=== PATIENT | male | born 1945 | race Asian ===

== ENCOUNTER 2017-06-21 09:45 | Inpatient (IN) | payer MEDICARE, OTHER ==
[2017-06-21] VITALS (35 sets, daily range): BP systolic 108–139; BP diastolic 56–73; PULSE 55–72; RESP 16–18; Ht 180.3 cm; Wt 73.8 kg
[~2017-06-21] VITALS: Ht 180.3 cm; Wt 73.8 kg
[~2017-06-21 09:45] MED LIST: AMLO-147 PO; BENA10TA48 PO; SIMV20TA2 PO
[2017-06-21] MEDS ORDERED: ASPI-664 PO (11:15)
[2017-06-21] MEDS ORDERED: BENA40TA41 PO (11:16)
[2017-06-21 11:43] LABS: ALBUMIN 4.7 g/dl (3.3-4.9); ALBUMIN/GLOBULIN RATIO 1.38; BILIRUBIN,INDIRECT 0.7 mg/dl (0-1.1); BILIRUBIN,TOTAL 0.7 mg/dl (0.2-1.3); TOTAL PROTEIN 8.1 g/dl (6.1-8.1)
[2017-06-21 11:45] LABS: CALCIUM 8.9 mg/dl (8.4-10.2); CREATININE 0.97 mg/dl (0.61-1.24)
--- NOTE | 2017-06-21 12:25 | HPN ---
Date/Time of Note Date/Time of Note DATE: 06/21/17 TIME: 12:25 Interval H&P Admission Note Pt. seen H&P reviewed: No system changes MARITZA OSORIO MD Jun 21, 2017 12:25
[2017-06-21] MEDS ORDERED: morphine SULFATE/PF (10 MG/10 ML) INJ ONE (12:26)
[2017-06-21] MEDS ORDERED: MEPERIDINE 25 MG INJ IV PRN (13:00)
[2017-06-21] MEDS ORDERED: ONDANSETRON 4 MG INJ IV PRN (13:00)
[2017-06-21] MEDS ORDERED: METOCLOPRAMIDE 10 MG INJ IV PRN (13:00)
[2017-06-21] MEDS ORDERED: FENTAnyl 50 MCG/ML VIAL IV PRN ×2 (13:00)
[2017-06-21] MEDS ORDERED: ALBUTEROL 0.083% (NEB) 2.5 MG/3 ML AMP HHN PRN (13:00)
[2017-06-21] MEDS ORDERED: HYDROmorphONE (0.2 MG/ML) 10ML SYG IV PRN ×2 (13:00)
[2017-06-21] MEDS ORDERED: DIPHENHYDRAMINE 50 MG INJ IV PRN (13:00)
[2017-06-21] MEDS ORDERED: SUCCINYLCHOLINE CHLORIDE 100 MG/5 ML SYG IV ONE (13:43)
[2017-06-21] MEDS ORDERED: LIDOCAINE 2% (SDV) 5 ML INJ ONE (13:43)
[2017-06-21] MEDS ORDERED: CEFAZOLIN 1 GM INJ ONE (13:43)
[2017-06-21] MEDS ORDERED: PROPOFOL 20 ML ONE (13:43)
[2017-06-21] MEDS ORDERED: ROCURONIUM 50 MG INJ ONE (13:43)
[2017-06-21] MEDS ORDERED: SUGAMMADEX SODIUM 200 MG/2 ML VIAL IV ONE (14:03)
--- NOTE | 2017-06-21 14:19 | OPR ---
Date/Time of Note Date/Time of Note DATE: 06/21/17 TIME: 14:11 Operative Report Procedure Date: Jun 21, 2017 Preoperative Diagnosis Benign prostatic hypertrophy with lower urinary tract symptoms and hematuria Postoperative Diagnosis Benign prostatic hypertrophy with lower urinary tract symptoms, patient also has a small bladder tumor Surgeon see signature line Vrt Mechanic None Anesthesia Type: general, spinal Anesthesiologist: MARKO OCASIO Estimated Blood Loss: 50 - 100 ml's Transfusion none Specimen 1-small bladder tumor 2-prostatic tissue Grafts/Implants none Tubes/Drains 24 [place] three-way Martinez catheter Complications none Pt Condition Post Procedure: stable Disposition: PACU Indications Benign prostatic hypertrophy with lower urinary tract symptoms and hematuria Procedure Description The patient was brought to the operating room, spinal anesthesia was given first then general anesthesia. The patient was positioned in the lithotomy position. Timeout was done. The patient was identified by his name birthdate and the procedure. The genital area was then prepped and draped in the usual sterile manner. #22 [place] cystoscope sheath was introduced under direct vision through the penile urethra all the way to the bladder. Patient did have a large median lobe mostly toward the right side. And there was some adhesions between the prostatic tissue and the urethra around the verumontanum. He also had a small bladder tumor on the left side of his bladder wall. The scope was then removed and the bipolar resectoscope was introduced. First I resected the bladder tumor and send the specimen separate. Then I resected the prostate and the medial lobe first then the lateral lobes and finally the anterior lobe. The apical tissue was also resected. Good hemostasis was obtained. The ureteral orifices were intact and away from the resection. The external sphincter is also intact. The resectoscope was then removed a #24 [place] three-way Martinez catheter was inserted. The balloon was inflated was 45 mL of sterile water. Continuous bladder irrigation was started in the operating room and the Martinez catheter connected to a drainage bag. The patient tolerated the procedure well and was transferred to the recovery room in a stable and satisfactory condition MARITZA OSORIO MD Jun 21, 2017 14:19
--- NOTE | 2017-06-21 15:06 | CONS ---
Date/Time of Note Date/Time of Note DATE: 06/21/17 TIME: 15:02 Assessment/Plan Assessment/Plan Chief Complaint/Hosp Course 1. BPH status post TURP postop day 0 Pain control 2. Bladder mass status post resection Follow-up on pathology 3. Hypertension Resume home meds as able Problems: Consultation Date/Type/Reason Admit Date/Time Jun 21, 2017 at 10:23 Hx of Present Illness Patient is a 71-year-old male with a history of hypertension and BPH status post TURP in 2009. Patient presented today for a repeat TURP, patient has no complaints at this time, he denies any chest pain shortness of breath. Constitutional: improved, no complaints Eyes: no complaints ENT: no complaints Respiratory: no complaints Cardiovascular: no complaints Gastrointestinal: no complaints Genitourinary: no complaints Musculoskeletal: no complaints Skin: no complaints Neurologic: no complaints Endocrine: no complaints Lymphatic: no complaints Psychological: nl mood/affect, no complaints Immunologic: no complaints Past Medical History Hypertension and BPH status post TURP in 2009 as well as today Family History Significant Family History: no pertinent family hx Social History Alcohol Use: rarely Smoking Status: Never smoker Drug Use: none Exam/Review of Systems Vital Signs Vitals Vital Signs Date Time Temp Pulse Resp B/P Pulse Ox O2 Delivery O2 Flow Rate FiO2 06/21/17 14:23 97.3 06/21/17 14:09 55 17 119/63 99 Nasal Cannula 2.0 Exam Constitutional: alert, oriented Head: normocephalic Respiratory: clear to auscultation Cardiovascular: regular rate and rhythm Gastrointestinal: soft, No distended Musculoskeletal: nl extremities to inspection Results Result Diagram: 06/21/17 1115 Results 24 hrs Laboratory Tests Test 06/21/17 11:15 Sodium Level 142 Potassium Level 4.0 Chloride Level 106 Carbon Dioxide Level 27 Anion Gap 13 Blood Urea Nitrogen 12 Creatinine 0.97 Glucose Level 111 Calcium Level 8.9 Total Bilirubin 0.7 Direct Bilirubin 0.00 Indirect Bilirubin 0.7 Aspartate Amino Transf (AST/SGOT) 26 Alanine Aminotransferase (ALT/SGPT) 33 Alkaline Phosphatase 56 Total Protein 8.1 Albumin 4.7 Globulin 3.40 H Albumin/Globulin Ratio 1.38 Medications Medications Current Medications Dextrose/Sodium Chloride (D5-1/2ns) 1,000 ml @ 50 mls/hr Q20H IV ; Start 06/21 at 14:07 OMID AYALA Jun 21, 2017 15:06
[2017-06-21] MEDS: DEXTROSE 5%-0.45% NACL 1,000 ML IV SCH (17:22)
[2017-06-21] MEDS ORDERED: NON-FORMULARY/PATIENT OWN MED (Simvastatin 20 MG) PO SCH (21:00)
[2017-06-21] MEDS ORDERED: ATORVASTATIN 10 MG TAB PO SCH (21:00)
[2017-06-22 02:00] VITALS: BP 120/63; RESP 18
[2017-06-22 05:58] LABS: BASOPHILS % 0.5 % (0.0-2.0); EOSINOPHILS # 0.2 10^3/ul (0.0-0.5); EOSINOPHILS % 2.7 % (0.0-7.0); HEMATOCRIT 38.8 % (42.0-52.0); HEMOGLOBIN 13.5 g/dl (14.0-18.0); LYMPHOCYTES # 0.9 10^3/ul (0.8-2.9); LYMPHOCYTES % 11.7 % (15.0-51.0); MEAN CORPUSCULAR HEMOGLOBIN 32.4 pg (29.0-33.0); MEAN CORPUSCULAR HGB CONC 34.8 g/dl (32.0-37.0); MONOCYTE # 0.7 10^3/ul (0.3-0.9); MONOCYTES % 8.7 % (0.0-11.0); NEUTROPHIL # 5.7 10^3/ul (1.6-7.5); NEUTROPHILS % 76.1 % (39.0-77.0); PLATELET COUNT 169 10^3/UL (140-415); RED BLOOD COUNT 4.17 10^6/ul (4.70-6.10); WHITE BLOOD COUNT 7.5 10^3/ul (4.8-10.8)
[2017-06-22 06:31] LABS: PHOSPHORUS 4.2 mg/dl (2.5-4.9)
[2017-06-22 07:40] VITALS: BP 109/58; RESP 20
--- NOTE | 2017-06-22 07:56 | PDOCDIS ---
Discharge Instructions CONDITION Patient Condition: Good HOME CARE INSTRUCTIONS: Diet Instructions: Regular ACTIVITY: Activity Restrictions: Slowly Increase Activity Rest between Activity Avoid heavy lifting No Sexual Activity Do not Drive Bathing Restrictions: May shower, let the water rinse over and dry the catheter and the back after shower FOLLOW UP/APPOINTMENTS Follow-up Plan Call Dr. Call's office [phone] for appointment for Monday to remove the Martinez catheter MARITZA CALL MD Jun 22, 2017 07:56
[2017-06-22] MEDS ORDERED: CEFTRIAXONE 1 GM/50 ML (PMX) 50 ML IVPB SCH (08:30)
[2017-06-22] MEDS ORDERED: BENAZEPRIL 40 MG TAB PO SCH (09:00)
[2017-06-22] MEDS ORDERED: ASPIRIN (EC) 81 MG TAB PO SCH (09:00)
[2017-06-22] MEDS ORDERED: AMLODIPINE 10 MG TAB PO SCH (09:00)
--- NOTE | 2017-06-22 09:34 | DS ---
DATE OF ADMISSION: 06/21/2017 DATE OF DISCHARGE: 06/22/2017 ADMITTING DIAGNOSIS: Benign prostatic hypertrophy with lower urinary tract symptoms and hematuria. DISCHARGE DIAGNOSIS: Benign prostatic hypertrophy with lower urinary tract symptoms and hematuria. The patient also does have a large prostate and also a small bladder tumor. The pathology report i s still pending. BRIEF HISTORY AND PHYSICAL FINDINGS: This is a 71-year-old male who has been having hematuria and l ower urinary tract symptoms. He does have a history of hypertension and dyslipidemia. The patient was admitted and underwent transurethral resection of the prostate and was found to have a small tomy dder tumor that was also resected. The patient postop had continuous bladder irrigation and his uri ne this morning is clear. Therefore, I will stop the irrigation, plug the catheter with a catheter plug and connect the catheter to a drainage bag and the patient will be discharged home and he will follow up in the office next Monday to remove the Martinez catheter. Patient was informed that he has a small bladder tumor and that he will need followup cystoscopies to make sure there is no recurrenc e. The first time would be about 3 months from now. Dictated By: MARITZA GONZALEZ/ANA LILIA Conf#: [id number] DID#: [id number]
[2017-06-22] MEDS: DEXTROSE 5%-0.45% NACL 1,000 ML IV SCH (10:07)
[2017-06-22 12:59] VITALS: BP 101/59; RESP 18
[2017-06-22 14:31] LABS: CALCIUM 8.7 mg/dl (8.4-10.2); CREATININE 1.01 mg/dl (0.61-1.24); POTASSIUM 4.1 mmol/L (3.5-5.1)
--- NOTE | 2017-06-22 18:29 | PN ---
Date/Time of Note Date/Time of Note DATE: 06/22/17 TIME: 18:28 Assessment/Plan VTE Prophylaxis VTE Prophylaxis Intervention: other Lines/Catheters IV Catheter Type (from Nrs): Peripheral IV Assessment/Plan Chief Complaint/Hosp Course 1. BPH status post TURP DC'd today by urology 2. Bladder mass status post resection Follow-up with urology for pathology 3. Hypertension Resume home meds as able Problems: Subjective 24 Hr Interval Summary Constitutional: no complaints Exam/Review of Systems Vital Signs Vitals Vital Signs Date Time Temp Pulse Resp B/P Pulse Ox O2 Delivery O2 Flow Rate FiO2 06/22/17 12:59 98.5 65 18 101/59 92 06/21/17 18:45 Room Air 06/21/17 16:26 2.0 Intake and Output 06/21/17 06/21/17 06/22/17 15:00 23:00 07:00 Intake Total 1000 ml 50 ml 1000 ml Output Total 1 ml 2075 ml Balance 999 ml 50 ml -1075 ml Exam Constitutional: alert, oriented Respiratory: clear to auscultation Cardiovascular: regular rate and rhythm Gastrointestinal: soft, No distended Musculoskeletal: nl extremities to inspection Results Result Diagram: 06/22/17 0528 06/22/17 1341 Results 24 hrs Laboratory Tests Test 06/22/17 05:28 06/22/17 13:41 White Blood Count 7.5 Red Blood Count 4.17 L Hemoglobin 13.5 L Hematocrit 38.8 L Mean Corpuscular Volume 93.0 Mean Corpuscular Hemoglobin 32.4 Mean Corpuscular Hemoglobin Concent 34.8 Red Cell Distribution Width 12.0 Platelet Count 169 Mean Platelet Volume 10.0 Neutrophils % 76.1 Lymphocytes % 11.7 L Monocytes % 8.7 Eosinophils % 2.7 Basophils % 0.5 Nucleated Red Blood Cells % 0.0 Neutrophils # 5.7 Lymphocytes # 0.9 Monocytes # 0.7 Eosinophils # 0.2 Basophils # 0.0 Nucleated Red Blood Cells # 0.0 Hemoglobin A1c 5.9 Phosphorus Level 4.2 Magnesium Level 2.0 Sodium Level 139 Potassium Level 4.1 Chloride Level 100 Carbon Dioxide Level 29 Anion Gap 14 Blood Urea Nitrogen 13 Creatinine 1.01 Glucose Level 137 Calcium Level 8.7 OMID AYALA Jun 22, 2017 18:29
== END 2017-06-22 14:25 | disposition home or self-care (01) | DRG 714 ==
LOC: REC 10:23 → EDSTATUS 12:30 → MS2 16:45
PROVIDERS: ADMIT Urology; ATTEND Urology
PROC: 0VT08ZZ Resection of Prostate, Via Natural or Artificial Opening Endoscopic (ICD-10-PCS; 2017-06-21)
PROC: 0TBB8ZZ Excision of Bladder, Via Natural or Artificial Opening Endoscopic (ICD-10-PCS; principal; 2017-06-21 12:30)
DX: N40.1 Benign prostatic hyperplasia with lower urinary tract symptoms (principal); R31.9 Hematuria, unspecified; I10 Essential (primary) hypertension; D30.3 Benign neoplasm of bladder
CPT/HCPCS: 80048; 80053; 83036; 83735; 84100; 85025; 88305; 88307; J0690; J2274; J7042